=== PATIENT | male | born 1995 | race African-American/Black ===

== ENCOUNTER 2016-07-06 16:29 | Emergency (ER) | payer SELFPAY ==
[2016-07-06] MEDS ORDERED: AMOXicillin 250 MG CAP ONE (17:12)
--- NOTE | 2016-07-06 17:19 | ERRECORD ---
[facility] EMERGENCY RECORD HPI TOOTHACHE (17:01 [facility]) CHIEF COMPLAINT: Patient presents for evaluation of toothache. HISTORIAN: History provided by patient. TEETH: left upper molar with abscess. EXACERBATED BY: Patient's condition exacerbated by nothing. ROS (17:02 [facility]) CONSTITUTIONAL: Negative constitutional review of systems, Historian denies chills, denies fever. EYES: Negative eye review of systems. ENT: Negative ears, nose, throat review of systems, dental pain. CARDIOVASCULAR: Negative cardiovascular review of systems, Historian denies chest pain, denies palpitations. RESPIRATORY: Negative respiratory review of systems, Historian denies cough, denies shortness of breath. GI: Negative gastrointestinal review of systems, Historian denies abdominal pain, denies constipation, denies diarrhea. MUSCULOSKELETAL: Negative musculoskeletal review of systems. SKIN: Negative skin review of systems. NEUROLOGIC: Negative neurologic review of systems. ENDOCRINE: Negative endocrine review of systems. HEMO/LYMPHATIC: Normal hematologic/lymphatic system review. PSYCHIATRIC: Negative psychiatric review of systems. NOTES: All other ROS is negative except as listed in HPI. PAST MEDICAL HISTORY MEDICAL HISTORY: No past medical history, Flu vaccine not up to date, No past medical history. (WedJul 06, 2016 16:38 MDEB) MALE SURGICAL HISTORY: Patient has no surgical history. (WedJul 06, 2016 16:38 MDEB) SOCIAL HISTORY: Patient denies alcohol use, Patient denies drug use, Patient currently uses tobacco, smokes cigarettes, daily, Patient smokes 1/2 packs per day. (WedJul 06, 2016 16:38 MDEB) NOTES: I have reviewed and agree with the PMH/PSxH/FamHx/SocHx obtained by the nurse. (17:02 [facility]) KNOWN ALLERGIES No Known Drug Allergies CURRENT MEDICATIONS No recorded medications VITAL SIGNS (16:36 MDEB) VITAL SIGNS: BP: 142/59, Pulse: 106, Resp: 20, Temp: 97.6 (Tympanic), Pain: 8, O2 sat: 98 on Room Air, Time: 07/06/2016 16:36. PHYSICAL EXAM (17:02 [facility]) &a-1R&a+25V*p+0X*[id number]*c202B*c15G*c2P*p-0X&a-25V&a+1R Name: Clarence Zabala JR : 1995 M21 MedRec: [id number] AcctNum: [id number] Prepared: WedJul 06, 2016 17:28 by Interface Page 1 of 3 pMD [facility] EMERGENCY RECORD CONSTITUTIONAL: Vital signs reviewed, Patient appears non toxic, Patient alert and oriented to person, place and time, Pt is in no apparent distress. HEAD: Head exam included findings of head atraumatic, normocephalic. EYES: Eye exam included findings of eyelids normal to inspection, Pupils equally round and reactive to light, Extraocular muscles intact. ENT: Nose exam normal, no nasal deformity, no bleeding from nares, Pharynx exam normal, Mouth exam normal, mucous membranes moist, palpable abscess on first upper left molar on inner gum surface (patient deferred drainage---discussed). NECK: Neck exam included findings of normal range of motion, Trachea midline. RESPIRATORY CHEST: Respiratory and chest exam normal, Breath sounds clear, No wheezing, No rales, Chest exam included findings of chest movement symmetrical, Chest expansion equal. CARDIOVASCULAR: Cardiovascular assessment normal, Cardiovascular exam included findings of heart rate regular rate and rhythm, Heart sounds normal. ABDOMEN MALE: Abdominal exam included findings of abdomen nontender, Bowel sounds normal, no mass, no pulsatile masses, no peritoneal signs, no rigidity, no guarding, no rebound. BACK: Back exam included findings of normal inspection, range of motion normal, no costovertebral angle tenderness. UPPER EXTREMITY: Upper extremity exam included findings of inspection normal, Range of motion normal. LOWER EXTREMITY: Lower extremity exam included findings of inspection normal, Range of motion normal. NEURO: Neuro exam findings include patient oriented to person, place and time, Speech normal, no focal motor deficits, no focal sensory deficits. SKIN: Skin exam included findings of skin warm, dry, and normal in color. LYMPHATIC: Lymphatic exam normal. PSYCHIATRIC: Psychiatric exam included findings of patient oriented to person place and time, Normal affect. MEDICATION ADMINISTRATION SUMMARY Drug Name: Amoxil, Dose Ordered: 1000 mg, Route: Oral, Status: Given, Time: 17:15 07/06/2016, Detailed record available in Medication Service section. PROBLEM LIST No recorded problems DIAGNOSIS (17:03 [facility]) FINAL: PRIMARY: dental abscess. &a-1R&a+25V*p+0X*g0348C*c202B*c15G*c2P*p-0X&a-25V&a+1R Name: Clarence Zabala JR : 1995 M21 MedRec: [id number] AcctNum: [id number] Prepared: WedJul 06, 2016 17:28 by Interface Page 2 of 3 pMD [facility] EMERGENCY RECORD PRESCRIPTION (17:04 [facility]) Amoxil: CAPSULE : 500 mg : ORAL : Quantity: 1 Unit: cap(s) Route: ORAL Schedule: 3 times a day (after meals) Dispense: 50 Unit: cap(s) May substitute. Refills: No Refills . NOTES: continue at least until you see the dentist or out of all pills. see dentist soon. No Refills. Ultram: TABLET : 50 mg : ORAL : Quantity: 1 Unit: tab(s) Route: ORAL Schedule: every 4 hours prn Dispense: 15 Unit: tab(s) May substitute. Refills: No Refills . NOTES: No Refills. DISPOSITION PATIENT: Disposition Type: Discharge, Disposition: *Discharge Home. (17:03 [facility]) Patient left the department. (17:21 [facility]) Lindsey: GEMA=DOMITILA Bucio, Nyasia MILLAN=MD Farzana, Issac &a-1R&a+25V*p+0X*[id number]*c202B*c15G*c2P*p-0X&a-25V&a+1R Name: SagrarioClarence JR : 1995 M21 MedRec: [id number] AcctNum: [id number] Prepared: WedJul 06, 2016 17:28 by Interface Page 3 of 3 pMD MTDD
--- NOTE | 2016-07-06 17:27 | PICIS ---
[facility] EMERGENCY RECORD TRIAGE (WedJul 06, 2016 16:38 MDEB) PATIENT: NAME: Clarence Zabala JR, AGE: 21, GENDER: male, : Wed1995, TIME OF GREET: WedJul 06, 2016 16:31, PREFERRED LANGUAGE: Latvian, RACE: Black or , ETHNICITY: Not or , FALL RISK: NO, ECODE BILLING MAP: [facility], Zip Code: [address], KG WEIGHT: 75.30, PHONE: , , , PERSON ID: [id number], PCP: NO PCP. (WedJul 06, 2016 16:38 MDEB) TRIAGE NOTES: ABCESS TO L UPPER MOLAR FOR 2 DAYS. (WedJul 06, 2016 16:38 MDEB) COMPLAINT: ABSCESSED TOOTH. (WedJul 06, 2016 16:38 MDEB) ADMISSION: URGENCY: 4 Non Urgent, ADMISSION SOURCE: Home, TRANSPORT: Walk-in, BED: TRIAGE. (WedJul 06, 2016 16:38 MDEB) PAIN: Patient complains of pain described as, aching, on a scale 0-10 patient rates pain as 8, Pain is constant. (WedJul 06, 2016 16:38 MDEB) IMMUNIZATIONS: Tetanus immunization up to date. (WedJul 06, 2016 16:38 MDEB) TRIAGE SCREENING: Patient denies suicidal ideation, Patient denies presence of domestic violence. (WedJul 06, 2016 16:38 MDEB) PROVIDERS: TRIAGE NURSE: Nyasia Bucio RN. (WedJul 06, 2016 16:38 MDEB) VITAL SIGNS: BP 142/59, Pulse 106, Resp 20, Temp 97.6, (Tympanic), Pain 8, O2 Sat 98, on Room Air, Time 07/06/2016 16:36. (16:36 MDEB) PREVIOUS VISIT ALLERGIES: No Known Drug Allergies. (WedJul 06, 2016 16:38 MDEB) KNOWN ALLERGIES No Known Drug Allergies CURRENT MEDICATIONS No recorded medications VITAL SIGNS (16:36 MDEB) VITAL SIGNS: BP: 142/59, Pulse: 106, Resp: 20, Temp: 97.6 (Tympanic), Pain: 8, O2 sat: 98 on Room Air, Time: 07/06/2016 16:36. NURSING ASSESSMENT: DENTAL (16:40 MDEB) CONSTITUTIONAL: Patient arrives ambulatory, Gait steady, History obtained from patient, Patient appears, anxious, uncomfortable, Patient cooperative, Patient alert, Oriented to person, place and time, Skin warm, Skin dry, Skin normal in color, Mucous membranes pink, Mucous membranes moist, Patient is well-groomed, Patient complains of L UPPER MOPLAR ABCESS. PAIN: aching pain, to left upper back tooth (teeth), upper left 1st molar (#14),, constant, on a scale 0-10 patient rates pain as 8, Pain exacerbated by nothing, Nothing has been tried to alleviate the pain. &a-1R&a+25V*p+0X*d1196E*c202B*c15G*c2P*p-0X&a-25V&a+1R Name: Clarence Zabala : 1995 M21 MedRec: [id number] AcctNum: [id number] Prepared: WedJul 06, 2016 17:34 by Interface Page 1 of 5 pMD [facility] EMERGENCY RECORD DENTAL: Dental assessment findings include mouth normal, Teeth abnormal:, broken secondary tooth (teeth), signs of infection to secondary tooth (teeth), color change to secondary tooth (teeth), Associated with, swelling to the left jaw, GUM IS SWOLLEN. NOTES: Emotional support needed and given, Patient tolerated procedure well. SAFETY: Cart/Stretcher in lowest position, Call light within reach, Hospital ID band on. NURSING PROCEDURE: DISCHARGE NOTE (17:15 MDEB) DISCHARGE: Patient discharged to home, ambulating without assistance, driving self, unaccompanied, Summary of Care printed/ provided, Patient requested and was provided an electronic copy of Discharge Instructions, Transition record given to patient, Discharge instructions given to patient, Simple or moderate discharge teaching performed, PAIN CONTROL, Prescriptions given and instructions on side effects given, Above person(s) verbalized understanding of discharge instructions and follow-up care, Patient treated and evaluated by physician. BELONGINGS: Belongings remain with patient, Valuables remain with patient. NOTES: Emotional support needed and given, Patient tolerated procedure well. MEDICATION ADMINISTRATION SUMMARY Drug Name: Amoxil, Dose Ordered: 1000 mg, Route: Oral, Status: Given, Time: 17:15 07/06/2016, Detailed record available in Medication Service section. MEDICATION SERVICE (17:15 [facility]) Amoxil: Order: Amoxil (amoxicillin trihydrate) - Dose: 1000 mg : Oral Schedule: Now Ordered by: Issac Yanes MD Entered by: Issac Yanes MD WedJul 06, 2016 17:00 , Acknowledged by: Nyasia Bucio RN WedJul 06, 2016 17:12 Documented as given by: Nyasia Bucio RN WedJul 06, 2016 17:15 Patient, Medication, Dose, Route and Time verified prior to administration. Amount given: 1000 MG, Site: Medication administered P.O., Correct patient, time, route, dose and medication confirmed prior to administration, Patient advised of actions and side-effects prior to administration, Allergies confirmed and medications reviewed prior to administration, Patient in position of comfort, Side rails up, Cart in lowest position. HPI TOOTHACHE (17:01 [facility]) CHIEF COMPLAINT: Patient presents for evaluation of &a-1R&a+25V*p+0X*y7446U*c202B*c15G*c2P*p-0X&a-25V&a+1R Name: Clarence Zabala JR : 1995 M21 MedRec: [id number] AcctNum: [id number] Prepared: WedJul 06, 2016 17:34 by Interface Page 2 of 5 pMD [facility] EMERGENCY RECORD toothache. HISTORIAN: History provided by patient. TEETH: left upper molar with abscess. EXACERBATED BY: Patient's condition exacerbated by nothing. ROS (17:02 [facility]) CONSTITUTIONAL: Negative constitutional review of systems, Historian denies chills, denies fever. EYES: Negative eye review of systems. ENT: Negative ears, nose, throat review of systems, dental pain. CARDIOVASCULAR: Negative cardiovascular review of systems, Historian denies chest pain, denies palpitations. RESPIRATORY: Negative respiratory review of systems, Historian denies cough, denies shortness of breath. GI: Negative gastrointestinal review of systems, Historian denies abdominal pain, denies constipation, denies diarrhea. MUSCULOSKELETAL: Negative musculoskeletal review of systems. SKIN: Negative skin review of systems. NEUROLOGIC: Negative neurologic review of systems. ENDOCRINE: Negative endocrine review of systems. HEMO/LYMPHATIC: Normal hematologic/lymphatic system review. PSYCHIATRIC: Negative psychiatric review of systems. NOTES: All other ROS is negative except as listed in HPI. PAST MEDICAL HISTORY MEDICAL HISTORY: No past medical history, Flu vaccine not up to date, No past medical history. (WedJul 06, 2016 16:38 MDEB) MALE SURGICAL HISTORY: Patient has no surgical history. (WedJul 06, 2016 16:38 MDEB) SOCIAL HISTORY: Patient denies alcohol use, Patient denies drug use, Patient currently uses tobacco, smokes cigarettes, daily, Patient smokes 1/2 packs per day. (WedJul 06, 2016 16:38 MDEB) NOTES: I have reviewed and agree with the PMH/PSxH/FamHx/SocHx obtained by the nurse. (17:02 [facility]) PHYSICAL EXAM (17:02 [facility]) CONSTITUTIONAL: Vital signs reviewed, Patient appears non toxic, Patient alert and oriented to person, place and time, Pt is in no apparent distress. HEAD: Head exam included findings of head atraumatic, normocephalic. EYES: Eye exam included findings of eyelids normal to inspection, Pupils equally round and reactive to light, Extraocular muscles intact. ENT: Nose exam normal, no nasal deformity, no bleeding from nares, Pharynx exam normal, Mouth exam normal, mucous membranes moist, palpable abscess on first upper left molar on inner gum surface (patient deferred drainage---discussed). &a-1R&a+25V*p+0X*i4078F*c202B*c15G*c2P*p-0X&a-25V&a+1R Name: Sagrario Clarencefroylan Rausch JR : 1995 M21 MedRec: [id number] AcctNum: [id number] Prepared: WedJul 06, 2016 17:34 by Interface Page 3 of 5 pMD [facility] EMERGENCY RECORD NECK: Neck exam included findings of normal range of motion, Trachea midline. RESPIRATORY CHEST: Respiratory and chest exam normal, Breath sounds clear, No wheezing, No rales, Chest exam included findings of chest movement symmetrical, Chest expansion equal. CARDIOVASCULAR: Cardiovascular assessment normal, Cardiovascular exam included findings of heart rate regular rate and rhythm, Heart sounds normal. ABDOMEN MALE: Abdominal exam included findings of abdomen nontender, Bowel sounds normal, no mass, no pulsatile masses, no peritoneal signs, no rigidity, no guarding, no rebound. BACK: Back exam included findings of normal inspection, range of motion normal, no costovertebral angle tenderness. UPPER EXTREMITY: Upper extremity exam included findings of inspection normal, Range of motion normal. LOWER EXTREMITY: Lower extremity exam included findings of inspection normal, Range of motion normal. NEURO: Neuro exam findings include patient oriented to person, place and time, Speech normal, no focal motor deficits, no focal sensory deficits. SKIN: Skin exam included findings of skin warm, dry, and normal in color. LYMPHATIC: Lymphatic exam normal. PSYCHIATRIC: Psychiatric exam included findings of patient oriented to person place and time, Normal affect. EVENTS TRANSFER: Triage to Emergency Triage. (16:38 MDEB) Emergency Triage to Main ED -01. (16:40 MDEB) Removed from Emergency Main ED -01. (17:21 MDEB) PROBLEM LIST No recorded problems DIAGNOSIS (17:03 [facility]) FINAL: PRIMARY: dental abscess. DISPOSITION PATIENT: Disposition Type: Discharge, Disposition: *Discharge Home. (17:03 [facility]) Patient left the department. (17:21 MDEB) INSTRUCTION (17:06 [facility]) DISCHARGE: ABSCESS DENTAL. SPECIAL: 1. antibiotic as directed 2. pain medication sparingly 3. return if problems develop 4. see dentist soon. PRESCRIPTION (17:04 [facility]) &a-1R&a+25V*p+0X*g4057C*c202B*c15G*c2P*p-0X&a-25V&a+1R Name: Clarence Zabala Shalom CROSS : 1995 M21 MedRec: [id number] AcctNum: [id number] Prepared: WedJul 06, 2016 17:34 by Interface Page 4 of 5 pMD [facility] EMERGENCY RECORD Amoxil: CAPSULE : 500 mg : ORAL : Quantity: 1 Unit: cap(s) Route: ORAL Schedule: 3 times a day (after meals) Dispense: 50 Unit: cap(s) May substitute. Refills: No Refills . NOTES: continue at least until you see the dentist or out of all pills. see dentist soon. No Refills. Ultram: TABLET : 50 mg : ORAL : Quantity: 1 Unit: tab(s) Route: ORAL Schedule: every 4 hours prn Dispense: 15 Unit: tab(s) May substitute. Refills: No Refills . NOTES: No Refills. IMAGING (17:19 [facility]) *DISCHARGE INSTRUCTIONS RECEIPT: Image captured from scanner. *SUPPLY CHARGE SHEET: Image captured from scanner. ADMIN (17:06 [facility]) DIGITAL SIGNATURE: MD Yanes Stanley. Lindsey: GEMA=DOMITILA Bucio, Nyasia MILLAN=MD Yanes Stanley &a-1R&a+25V*p+0X*i2620J*c202B*c15G*c2P*p-0X&a-25V&a+1R Name: Clarence Zabala JR : 1995 M21 MedRec: [id number] AcctNum: [id number] Prepared: WedJul 06, 2016 17:34 by Interface Page 5 of 5 pMD MTDD
== END 2016-07-06 17:15 | disposition home or self-care (01) ==
LOC: MADERS 16:29
DX: K04.7 Periapical abscess without sinus (principal); F17.210 Nicotine dependence, cigarettes, uncomplicated
CPT/HCPCS: 99282

== ENCOUNTER 2019-06-12 22:31 | Emergency (ER) | payer SELFPAY ==
[2019-06-12] MEDS ORDERED: Sulfameth/Trimethoprim DS 800-160mg TAB ONE (23:05)
== END 2019-06-12 23:15 | disposition home or self-care (01) ==
LOC: MADERS 22:31
DX: L03.116 Cellulitis of left lower limb (principal); F17.210 Nicotine dependence, cigarettes, uncomplicated
CPT/HCPCS: 99283

== ENCOUNTER 2020-07-07 15:24 | Emergency (ER) | payer OTHER ==
[2020-07-07] MEDS ORDERED: Lidocaine 1% w/Epinephrine 1:100K 20 ML VIAL ONE (15:56)
== END 2020-07-07 16:26 | disposition home or self-care (01) ==
LOC: MADERS 15:24
DX: K05.219 Aggressive periodontitis, localized, unspecified severity (principal); K02.9 Dental caries, unspecified; F17.210 Nicotine dependence, cigarettes, uncomplicated

== ENCOUNTER 2021-03-12 16:03 | Emergency (ER) | payer OTHER ==
[2021-03-13 11:59] LABS: SARS-CoV-2 PCR by NAA Not Detected (NotDetected)
== END 2021-03-12 17:07 | disposition home or self-care (01) ==
LOC: MADERS 16:03
DX: R11.10 Vomiting, unspecified (principal); Z20.822 Contact with and (suspected) exposure to COVID-19; F17.210 Nicotine dependence, cigarettes, uncomplicated
CPT/HCPCS: 99283; U0003; U0005

== ENCOUNTER 2021-11-21 12:23 | Emergency (ER) | payer OTHER, SELFPAY | END 2021-11-21 13:22 | disposition home or self-care (01) | LOC: MADERS 12:23 | DX: H11.31 Conjunctival hemorrhage, right eye (principal); B00.1 Herpesviral vesicular dermatitis; F17.210 Nicotine dependence, cigarettes, uncomplicated | CPT/HCPCS: 87255; 99283 ==

== ENCOUNTER 2022-11-12 16:46 | Emergency (ER) | payer SELFPAY | END 2022-11-12 17:50 | disposition home or self-care (01) | LOC: MADERS 16:46 | DX: K02.9 Dental caries, unspecified (principal); F17.210 Nicotine dependence, cigarettes, uncomplicated | CPT/HCPCS: 99282 ==

== ENCOUNTER 2023-12-25 14:09 | Emergency (ER) | payer SELFPAY ==
[2023-12-25] MEDS ORDERED: Ibuprofen 800 MG TAB ONE (14:26)
== END 2023-12-25 14:51 | disposition home or self-care (01) ==
LOC: MADERS 14:09
DX: S39.012A Strain of muscle, fascia and tendon of lower back, initial encounter (principal); F17.210 Nicotine dependence, cigarettes, uncomplicated; V43.52XA Car driver injured in collision with other type car in traffic accident, initial encounter
CPT/HCPCS: 72100

== ENCOUNTER 2024-01-22 14:13 | Emergency (ER) | payer SELFPAY ==
[2024-01-22] MEDS ORDERED: Ketorolac Tromethamine 60 MG/2 ML VIAL ONE (14:43)
== END 2024-01-22 14:55 | disposition home or self-care (01) ==
LOC: MADERS 14:13
DX: M54.50 Low back pain, unspecified (principal); F17.210 Nicotine dependence, cigarettes, uncomplicated
CPT/HCPCS: 96372; 99283; J1885